=== PATIENT | male | born 1960 ===

== ENCOUNTER 2022-06-23 09:42 | Emergency (ER) | payer OTHER ==
[2022-06-23] MEDS ORDERED: ASPIRIN 325 MG TAB PO ONE (10:34)
--- NOTE | 2022-06-23 11:36 | XRay Report ---
CHEST 2 VIEWS INDICATION / CLINICAL INFORMATION: sob. COMPARISON: 11/28/20 FINDINGS: SUPPORT DEVICES: None. HEART / MEDIASTINUM: No significant abnormality. LUNGS / PLEURA: No significant pulmonary or pleural abnormality. No pneumothorax. ADDITIONAL FINDINGS: No significant additional findings. IMPRESSION: 1. No acute findings. Signer Name: Nadeen Nguyễn MD Signed: 06/23/2022 11:32 AM Workstation Name: [id number]
[2022-06-23 11:52] LABS: Basophils # (Auto) 0.1 K/mm3 (0.0-0.1); Basophils % (Auto) 1.1 % (0.0-1.8); Eosinophils # (Auto) 0.1 K/mm3 (0.0-0.4); Eosinophils % (Auto) 0.8 % (0.0-4.3); Hematocrit 36.7 % (35.5-45.6); Hemoglobin 11.9 gm/dl (11.8-15.2); Lymphocytes # (Auto) 1.6 K/mm3 (1.2-5.4); Lymphocytes % (Auto) 23.2 % (13.4-35.0); Mean Corpuscular HGB Conc 32 % (32-34); Mean Corpuscular Volume 78 fl (84-94); Monocytes % (Auto) 14.7 % (0.0-7.3); Platelet Count 335 K/mm3 (140-440); Red Blood Count 4.69 M/mm3 (3.65-5.03); Red Cell Distribution Width 19.4 % (13.2-15.2)
[2022-06-23 12:19] LABS: Albumin 4.2 g/dL (3.9-5); Calcium 9.8 mg/dL (8.4-10.2)
--- NOTE | 2022-06-23 13:47 | Emergency Department Report ---
<JESSY PENNINGTON DELICIA - Last Filed: 06/23/22 13:41> ED Shortness of Breath HPI - General Chief Complaint: Dyspnea/Respdistress Stated Complaint: BUMP ON NECK Time Seen by Provider: 06/23/22 13:32 Source: patient Mode of arrival: Ambulatory Limitations: Physical Limitation - History of Present Illness Initial Comments: Patient is a 61-year-old male presenting to ED with complaint of shortness of breath. He reports history of long COVID with initial infection back in November 2020. He is on chronic O2 at 3 L/min. He also complains of painful anterior neck mass that has grown in size over the past few days that has been present for several months. Denies fever or chills. - Related Data Previous Rx's Medication Instructions Recorded Last Taken Type HYDROcodone/APAP 5-325 [Pruden 1 each PO Q6HR PRN #14 tablet 06/23/22 Unknown Rx 5/325] Sulfamethoxazole/Trimethoprim 1 each PO BID #20 tab 06/23/22 Unknown Rx [Bactrim DS TAB] Allergies Allergy/AdvReac Type Severity Reaction Status Date / Time No Known Allergies Allergy Unverified 06/23/22 10:26 ED Review of Systems Constitutional: denies: chills, fever Respiratory: shortness of breath Cardiovascular: denies: chest pain, palpitations Gastrointestinal: denies: abdominal pain, nausea, diarrhea Genitourinary: denies: urgency, dysuria Musculoskeletal: denies: back pain, joint swelling, arthralgia Skin: lesions (Neck) Neurological: denies: headache, weakness, paresthesias Psychiatric: denies: anxiety, depression ED Past Medical Hx - Past Medical History Previous Medical History?: Yes Hx Hypertension: Yes Hx Diabetes: Yes Hx Arthritis: Yes Additional medical history: SOB - Surgical History Past Surgical History?: No - Medications Home Medications: Home Medications Medication Instructions Recorded Confirmed Last Taken Type HYDROcodone/APAP 5-325 [[place] 1 each PO Q6HR PRN #14 tablet 06/23/22 Unknown Rx 5/325] Sulfamethoxazole/Trimethoprim 1 each PO BID #20 tab 06/23/22 Unknown Rx [Bactrim DS TAB] ED Physical Exam - General Limitations: Physical Limitation General appearance: alert, in no apparent distress, obese - Head Head exam: Present: atraumatic, normocephalic - Neck Neck exam: Present: other (There is a raised 4.5 x 3 cm nonpulsatile mass to the anterior right neck. There is tenderness and fluctuance.) - Respiratory Respiratory exam: Present: normal lung sounds bilaterally. Absent: respiratory distress - Cardiovascular Cardiovascular Exam: Present: normal rhythm, tachycardia, normal heart sounds - GI/Abdominal GI/Abdominal exam: Present: soft. Absent: distended, tenderness - Rectal Rectal exam: Present: deferred - Neurological Exam Neurological exam: Present: alert, oriented X3, CN II-XII intact - Psychiatric Psychiatric exam: Present: normal affect, normal mood - Skin Skin exam: Present: warm, dry, intact, normal color ED Medical Decision Making - Lab Data Result diagrams: 06/23/22 10:48 06/23/22 10:48 ED Disposition Clinical Impression: Long COVID, O2 dependent, Cyst of neck Disposition: 01 HOME / SELF CARE / HOMELESS Condition: Stable Instructions: Home Oxygen Use, Adult, Thyroglossal Cyst Additional Instructions: Your CAT scan reveals that you have a fluid-filled mass on the right side of your neck. You have been provided antibiotics to treat for possible infected cyst given an increase in pain to this area. 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 You have required previous surgical cyst removal to this area in the past. It is very important that you follow-up with the surgeon Dr. Wyatt for further evaluation of your cyst and to determine if you require surgical removal of your recurrent cyst. Also follow-up with the traffic or system dispatcher provided for further evaluation regarding your chronic lung disease. Please return if symptoms worsen as an acute by your discharge instructions Prescriptions: Sulfamethoxazole/Trimethoprim [Bactrim DS TAB] 1 each PO BID #20 tab HYDROcodone/APAP 5-325 [Pruden 5/325] 1 each PO Q6HR PRN #14 tablet PRN Reason: Pain Referrals: YULY COULTER MD [Staff Physician] - 3-5 Days (Hospital Plan Administrator) ABDIEL WYATT MD [Staff Physician] - 3-5 Days <MYRIAM COYLE - Last Filed: 06/23/22 16:48> ED Review of Systems ROS: Stated complaint: BUMP ON NECK Other details as noted in HPI ED Course Vital Signs 06/23/22 10:27 Temperature 98.8 F Pulse Rate 111 H Respiratory 24 Rate Blood Pressure 162/92 [Right] O2 Sat by Pulse 97 Oximetry - Reevaluation(s) Reevaluation #1: 06/23/22 16:27 hr 98% at rest, sat 98% on 4L, pt reports that he is no longer sob. - Consultations Consultation #1: 06/23/22 16:34 CT results of the neck discussed with general surgeon Dr. Wyatt. Patient will be empirically placed on Bactrim and referred to Dr. Wyatt for definitive management of his possible branchiogenic cyst ED Medical Decision Making - Lab Data Result diagrams: 06/23/22 10:48 06/23/22 10:48 Lab Results 06/23/22 06/23/22 Range/Units 10:48 10:48 WBC 6.9 (4.5-11.0) K/mm3 RBC 4.69 (3.65-5.03) M/mm3 Hgb 11.9 (11.8-15.2) gm/dl Hct 36.7 (35.5-45.6) % MCV 78 L (84-94) fl MCH 25 L (28-32) pg MCHC 32 (32-34) % RDW 19.4 H (13.2-15.2) % Plt Count 335 (140-440) K/mm3 Lymph % (Auto) 23.2 (13.4-35.0) % [place] % (Auto) 14.7 H (0.0-7.3) % Eos % (Auto) 0.8 (0.0-4.3) % Baso % (Auto) 1.1 (0.0-1.8) % Lymph # (Auto) 1.6 (1.2-5.4) K/mm3 [place] # (Auto) 1.0 H (0.0-0.8) K/mm3 Eos # (Auto) 0.1 (0.0-0.4) K/mm3 Baso # (Auto) 0.1 (0.0-0.1) K/mm3 Seg Neutrophils % 60.2 (40.0-70.0) % Seg Neutrophils # 4.2 (1.8-7.7) K/mm3 Sodium 139 (137-145) mmol/L Potassium 3.7 (3.6-5.0) mmol/L Chloride 98.9 (98-107) mmol/L Carbon Dioxide 27 (22-30) mmol/L Anion Gap 17 mmol/L BUN 13 (9-20) mg/dL Creatinine 1.7 H (0.8-1.3) mg/dL Estimated GFR 41 ml/min BUN/Creatinine Ratio 8 % Glucose 297 H (75-100) mg/dL Calcium 9.8 (8.4-10.2) mg/dL Total Bilirubin 0.60 (0.1-1.2) mg/dL AST 14 (5-40) units/L ALT 8 (7-56) units/L Alkaline Phosphatase 127 (35-129) units/L Troponin T 0.023 (0.00-0.029) ng/mL Total Protein 7.9 (6.3-8.2) g/dL Albumin 4.2 (3.9-5) g/dL Albumin/Globulin Ratio 1.1 % - Radiology Data Radiology results: report reviewed CT NECK 06/23/2022 HISTORY: Painful anterior neck mass. COMPARISON: CT neck to 04/13/2018, [facility] (we have access to that outside system imaging database in our PACS system.) FINDINGS: Contrast enhanced CT images of the soft tissues of the neck were obtained. There is a subcutaneous 3 cm soft tissue lesion located in the right side of the neck, overlying the stomach mastoid muscle. It is relatively hypodense centrally, possibly indicating fluid collection or abscess. There is associated thickening of the overlying skin. Surrounding cellulitic changes are present. On the prior exam, a similar lesion is present. At that time, the maximum length of the lesion was 2.4 cm. Overall appearance is similar to the prior exam. Correlation with clinical details from 2018 would be helpful for further evaluation. Soft tissue structures in the neck are otherwise unremarkable. There is a normal CT appearance to the parotid and submandibular glands. Thyroid gland is unremarkable. Osseous and vascular structures demonstrate no acute abnormality. Degenerative disc and facet changes are present throughout the cervical spine. IMPRESSION: Right lateral neck subcutaneous hypodense lesion with apparent surrounding inflammatory changes. The appearance is most consistent with abscess. A similar lesion was present at the time the prior outside exam from 12/30/2017. - Medical Decision Making 61-year-old male signed out to me who presented to the ER with complaints of worsening and chronic shortness of breath as well and worsening in size and increase in pain of right sided neck mass. I was informed to f/u on ct neck results. Patient has had chronic dyspnea with O2 dependent since his COVID infection. He reports feeling better in the ED on 4 L O2. No chest pain reported. Heart rate improved to 98 at rest with O2 saturation 98% on 4 L nasal cannula. Patient has a tender anterior fluctuant right anterior neck mass without surrounding erythema or warmth. CT report reveals a fluid-filled structure with abscess/cellulitis in the differential. This was compared to previous outside imaging that also included a cystic structure at this location. Patient does state that he had a patient states he previously had a cyst removed surgically from his neck in this area. This is likely a recurrence of a cyst given the entire clinical picture. Patient does not have localized findings of cellulitis, fever, or leukocytosis. 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 Patient be referred to Dr. Wyatt general surgeon for outpatient management and empirically treated with Bactrim and provided pain medication Critical Care Time: No Critical care attestation.: If time is entered above; I have spent that time in minutes in the direct care of this critically ill patient, excluding procedure time. ED Disposition Is pt being admited?: No Does the pt Need Aspirin: No Time of Disposition: 16:48
[2022-06-23] MEDS ORDERED: HYDROmorphone 1 MG/1 ML INJ IV ONE (14:11)
--- NOTE | 2022-06-23 15:23 | Cat Scan Report ---
CT NECK 06/23/2022 HISTORY: Painful anterior neck mass. COMPARISON: CT neck to 04/13/2018, [facility] (we have access to that outside system imaging database in our PACS system.) FINDINGS: Contrast enhanced CT images of the soft tissues of the neck were obtained. There is a subcu taneous 3 cm soft tissue lesion located in the right side of the neck, overlying the stomach mastoid muscle. It is relatively hypodense centrally, possibly indicating fluid collection or abscess. There is associated thickening of the overlying skin. Surrounding cellulitic changes are present. On the pr ior exam, a similar lesion is present. At that time, the maximum length of the lesion was 2.4 cm[address] Ove rall appearance is similar to the prior exam. Correlation with clinical details from 2018 would be he lpful for further evaluation. Soft tissue structures in the neck are otherwise unremarkable. There is a normal CT appearance to the parotid and submandibular glands. Thyroid gland is unremarkable. Osseous and vascular structures demonstrate no acute abnormality. Degenerative disc and facet changes are present throughout the cervical spine. IMPRESSION: Right lateral neck subcutaneous hypodense lesion with apparent surrounding inflammatory c hanges. The appearance is most consistent with abscess. A similar lesion was present at the time the prior outside exam from 12/30/2017. All CT scans at this location are performed using dose reduction to ALARA by means of automated expos ure control. Signer Name: Errol Finn MD Signed: 06/23/2022 3:18 PM Workstation Name: [id number]
[2022-06-23] MEDS ORDERED: SULFAMETHOXAZOLE/TRIMETHOPRIM 800/160MG DS TAB PO ONE (16:32)
[2022-06-23 17:11] VITALS: BP 189/103
--- NOTE | 2022-06-24 10:37 | Electrocardiograph Report ---
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
--- NOTE | 2022-06-24 10:39 | Electrocardiograph Report ---
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
== END 2022-06-23 18:30 | disposition home or self-care (01) ==
LOC: ED 09:42
DX: R22.1 Localized swelling, mass and lump, neck (principal); Z20.822 Contact with and (suspected) exposure to COVID-19; I10 Essential (primary) hypertension; E11.9 Type 2 diabetes mellitus without complications; M19.90 Unspecified osteoarthritis, unspecified site
CPT/HCPCS: 36415; 70491; 71046; 80053; 84484; 85025; 93005; 96374; 99284; J1170; Q9967